=== PATIENT | male | born 1960 | race Caucasian/White ===

== ENCOUNTER 2017-07-11 07:28 | Day surgery (SDC) | payer BC ==
[~2017-07-11 07:28] MED LIST: D5 1/2 NS w/ 20 mEq/L KCl 1,000 ML IV SCH; Lactated Ringers 1,000 ML IV SCH; Lidocaine 2% 5 ML SDV ONE; Propofol 200 MG/20 ML SDV ONE; fentaNYL 100 MCG/2 ML SDV ONE
--- NOTE | 2017-07-11 08:06 | PCM.PREANE ---
Preanesthetic Assessment - Anesthesia/Transfusion/Family Hx Anesthesia History: Prior Anesthesia Without Reaction Other Type of Anesthesia Reaction Comment: Deneis any known porblems in past, no family hx problems Family History of Anesthesia Reaction: No Transfusion History: No Prior Transfusion(s) - Review of Systems General: No Symptoms Pulmonary: No Symptoms Cardiovascular: No Symptoms Gastrointestinal: No Symptoms Neurological: No Symptoms Other: Reports: None - Physical Assessment NPO Status Date: 07/10/17 Height: 1.91 m Weight: 114.759 kg ASA Class: 3 Mental Status: Alert & Oriented x3 Airway Class: Mallampati = 2 Dentition: Reports: Normal Dentition ROM/Head Extension: Full Lungs: Clear to Auscultation, Normal Respiratory Effort Cardiovascular: Regular Rate, Regular Rhythm - Allergies Allergies/Adverse Reactions: Allergies Allergy/AdvReac Type Severity Reaction Status Date / Time Penicillins Allergy Intermediate Hives Verified 10/14/14 17:22 - Anesthesia Plan Pre-Op Medication Ordered: None - Acknowledgements Anesthesia Type Planned: MAC Pt an Appropriate Candidate for the Planned Anesthesia: Yes Alternatives and Risks of Anesthesia Discussed w Pt/Guardian: Yes Pt/Guardian Understands and Agrees with Anesthesia Plan: Yes PreAnesthesia Questionnaire HEENT History: Reports: None Cardiovascular History: Reports: Afib Respiratory History: Reports: None Gastrointestinal History: Reports: None Genitourinary History: Reports: None Neurological History: Reports: Concussion Endocrine/Metabolic History: Reports: Diabetes, Type II, Obesity/BMI 30+ Dermatologic History: Reports: None - Past Surgical History Head Surgeries/Procedures: Reports: None Neurological Surgical History: Reports: Lumbar Spine Other Neurological Surgeries/Procedures: hx back surgery Musculoskeletal Surgical History: Reports: Arthroscopic Knee, Carpal Tunnel - SUBSTANCE USE Smoking Status *Q: Former Smoker Second Hand Smoke Exposure: No Days Per Week of Alcohol Use: 0 Number of Drinks Per Day: 0 Total Drinks Per Week: 0 Recreational Drug Use History: No - HOME MEDS Home Medications: Home Meds Aspirin [Ecotrin] 325 mg PO DAILY 05/11/14 [History] Digoxin 0.25 mg PO DAILY 05/11/14 [History] Diltiazem HCl [Taztia Xt] 360 mg PO DAILY 07/05/17 [History] FLUoxetine HCl [Prozac] 20 mg PO DAILY 07/05/17 [History] Fluticasone Propionate [Flonase Allergy Relief] 2 spray NASBOTH ASDIRECTED PRN 07/05/17 [History] metFORMIN HCl [Metformin HCl] 500 mg PO BID 07/05/17 [History] - CURRENT (IN HOUSE) MEDS Current Meds: Current Medications Potassium Chloride/Dextrose/Sod Cl (D5 1/2 Ns W/ 20 Meq/L Kcl) 1,000 mls @ 125 mls/hr IV ASDIRECTED JARRETT Lactated Ringer's (Ringers, Lactated) 1,000 mls @ 100 mls/hr IV ASDIRECTED JARRETT Last Admin: 07/11/17 07:52 Dose: 100 mls/hr Discontinued Medications Fentanyl (Sublimaze) Confirm Administered Dose 100 mcg .ROUTE .STK-MED ONE Stop: 07/11/17 07:12 Lidocaine (Xylocaine-Mpf 2%) Confirm Administered Dose 5 ml .ROUTE .STK-MED ONE Stop: 07/11/17 07:12 Propofol (Diprivan 20 Ml) Confirm Administered Dose 400 mg .ROUTE .STK-MED ONE Stop: 07/11/17 07:12
[2017-07-11] MEDS ORDERED: Glycopyrrolate 0.2 MG/ML SDV ONE (09:16)
[2017-07-11] MEDS ORDERED: Propofol 200 MG/20 ML SDV ONE (09:18)
--- NOTE | 2017-07-11 09:51 | PCM.OPNOTE ---
- General Post-Op/Procedure Note Date of Surgery/Procedure: 07/11/17 Operative Procedure(s): colonoscopy w snare polypectomy Findings: see dict [id number] Pre Op Diagnosis: gib Post-Op Diagnosis: polyp and diverticulosis Anesthesia Technique: Moderate Sedation Primary Surgeon: Dany Rosado Pathology: 5 mm pedunculated polyp snare polypectomy Complications: None Condition: Good
--- NOTE | 2017-07-11 10:15 | OR ---
SURGEON: Dany Rosado MD DATE OF PROCEDURE: 07/11/2017 PREOPERATIVE DIAGNOSIS: Gastrointestinal bleeding. POSTOPERATIVE DIAGNOSIS: Colon polyp. PROCEDURE PERFORMED: Colonoscopy with snare polypectomy. COMPLICATIONS: None. FINDINGS: 1. The patient is easily sedated with FLIGHT DIRECTOR and Diprivan. The patient is soundly snoring. 2. Bowel prep is left to be desirable. Large amount of semi-formed stool coating the mucosa makes this is a very compromised study, is able to go to the cecum, but requiring constant irrigation to examine the mucosa. Colon was rather redundant at the sigmoid requiring several maneuvers to see the cecum. Cecum can be only seen in distance and indicated by ileocecal fold, one-to-one indentation. Mucosa examined. Upon scope pulling out, the patient has moderate diverticulosis, no signs or symptoms of diverticulitis, at the left colon all the way to the splenic flexure. The patient also had one tiny pedunculated polyp at distant 20 cm when the scope go in with snare polypectomy, captured, and sent for pathology. It is about 4-5 mm in size. The patient would benefit from a repeat colonoscopy in 3 years from today or if clinically indicated otherwise or if the polyp pathology indicate otherwise. DESCRIPTION OF PROCEDURE: The patient was taken to the endoscopy room. A time out was called, patient identified, and procedure identified. Diprivan was then administrated. Patient went from awake to sleep, hearing doctor talking or door closing is normal. Perineum inspection and digital examination were then performed. A well- lubricated colonoscope was gently inserted through the rectum, advanced past the rectosigmoid junction, the descending colon, splenic flexure, transverse colon, hepatic flexure, ascending colon, arrived to the cecum. Cecum was identified as dictated in the finding. Then the scope was carefully withdrawn while attention was paid to the mucosal surface for any abnormality. Air will be sucked out during the scope withdrawal. At the rectum, retroflexed to examine any rectal diseases, fistula or hemorrhoids. During mucosal examination, abnormality or polyp encountered. Using snare equipment, the abnormality or the polyp was then snared off using electrocautery. The Patient tolerated procedure well. There were no intraoperative complications, and Dr. Rosado was present throughout the whole procedure. KIKI / YOVANI /[id number]
[2017-07-11 10:38] VITALS: BP 133/65
== END 2017-07-11 10:13 | disposition home or self-care (01) ==
LOC: MW.SDS 07:28
PROVIDERS: ATTEND Surgery
DX: K63.5 Polyp of colon (principal); K57.30 Diverticulosis of large intestine without perforation or abscess without bleeding; I48.91 Unspecified atrial fibrillation; E11.9 Type 2 diabetes mellitus without complications; E66.9 Obesity, unspecified; Z87.891 Personal history of nicotine dependence; Z88.0 Allergy status to penicillin; Z79.82 Long term (current) use of aspirin; Z79.84 Long term (current) use of oral hypoglycemic drugs; Z79.899 Other long term (current) drug therapy; Z98.890 Other specified postprocedural states; Z68.31 Body mass index [BMI] 31.0-31.9, adult
CPT/HCPCS: 45385; 82962; J3010; J7120; 88305; J2704

== ENCOUNTER 2018-12-05 19:16 | Emergency (ER) | payer BC ==
--- NOTE | 2018-12-05 19:43 | EDM.PDOC ---
ED HPI GENERAL MEDICAL PROBLEM - General Chief Complaint: General Stated Complaint: PT HAS BODY PAIN Time Seen by Provider: 12/05/18 19:43 Source of Information: Reports: Patient History Limitations: Reports: No Limitations - History of Present Illness INITIAL COMMENTS - FREE TEXT/NARRATIVE: HISTORY AND PHYSICAL: History of present illness: Patient is a 58-year-old male who presents to the emergency room with complaints of right lower dental pain, body aches, right ear fullness, headache and generally feeling unwell. Patient states that he did have a dental extraction this afternoon. "Once the numbing medication was gone started have the symptoms". He denies any fever, chills, chest pain, shortness of breath or cough. Denies any abdominal pain, nausea, vomiting, diarrhea, constipation or dysuria. He has not had any recent antibiotic usage. Review of systems: As per history of present illness and below otherwise all systems reviewed and negative. Past medical history: As per history of present illness and as reviewed below otherwise noncontributory. Surgical history: As per history of present illness and as reviewed below otherwise noncontributory. Social history: See social history for further information Family history: As per history of present illness and as reviewed below otherwise noncontributory. Physical exam: General: Well-developed and well-nourished 58-year-old male. Alert and oriented. Nontoxic appearing and in no acute distress. HEENT: Normocephalic, pupils equal and reactive bilaterally, negative for conjunctival pallor or scleral icterus, mucous membranes moist, dental extraction noted to the #28 (blood clot noted in socket), TMs normal bilaterally , throat clear, neck supple, nontender, trachea midline. No drooling or trismus noted. No meningeal signs. No hot potato voice noted. Lungs: Clear to auscultation, breath sounds equal bilaterally, chest nontender. Heart: S1S2, regular rate and rhythm without overt murmur Abdomen: Soft, nondistended, nontender. Negative for masses or hepatosplenomegaly. Negative for costovertebral tenderness. Pelvis: Stable nontender. Genitourinary: Deferred. Rectal: Deferred. Skin: Intact, warm, dry. No lesions or rashes noted. Extremities: Atraumatic, negative for cords or calf pain. Neurovascular unremarkable. Neuro: Awake, alert, oriented. Cranial nerves II through XII unremarkable. Cerebellum unremarkable. Motor and sensory unremarkable throughout. Exam nonfocal. Notes: Negative influenza screening. Due to the patient's recent dental extraction and difficulty to assess if the swelling and redness is due to the procedure or early infection I will treat with clindamycin and have him follow closely with his dentist tomorrow. Diagnostics: Influenza Therapeutics: Dental Balls, Toradol IM Prescription: Clindamycin [place] Impression: Post dental infection Plan: 1. Take the medication as prescribed. 2. [place] for moderate to severe pain. This medication may cause drowsiness so do not take it'll driving her needing to be functioning outside of the house. Otherwise he may use [id number] products for pain relief. 3. Please follow closely with your dentist, call them tomorrow to arrange follow up. Return to the ED as needed and as discussed. Definitive disposition and diagnosis as appropriate pending reevaluation and review of above. Jaw/L Ear Pain Score (Numeric/FACES): 9 - Related Data Allergies Allergy/AdvReac Type Severity Reaction Status Date / Time Penicillins Allergy Intermediate Hives Verified 12/05/18 19:47 Home Meds: Home Meds Aspirin [Ecotrin] 325 mg PO DAILY 05/11/14 [History] Digoxin 0.25 mg PO DAILY 05/11/14 [History] Diltiazem HCl [Taztia Xt] 360 mg PO DAILY 07/05/17 [History] FLUoxetine HCl [Prozac] 20 mg PO DAILY 07/05/17 [History] Fluticasone Propionate [Flonase Allergy Relief] 2 spray NASBOTH ASDIRECTED PRN 07/05/17 [History] metFORMIN HCl [Metformin HCl] 1,000 mg PO BID 07/05/17 [History] Acetaminophen/HYDROcodone [[place] 325-5 MG] 1 dose PO Q4H PRN #15 tablet [Rx] Clindamycin HCl 300 mg PO TID 7 Days #21 capsule 12/05/18 [Rx] Past Medical History HEENT History: Reports: None Cardiovascular History: Reports: Afib Respiratory History: Reports: None Gastrointestinal History: Reports: None Genitourinary History: Reports: None Neurological History: Reports: Concussion Endocrine/Metabolic History: Reports: Diabetes, Type II, Obesity/BMI 30+ Dermatologic History: Reports: None - Past Surgical History Head Surgeries/Procedures: Reports: None Neurological Surgical History: Reports: Lumbar Spine Other Neurological Surgeries/Procedures: hx back surgery Musculoskeletal Surgical History: Reports: Arthroscopic Knee, Carpal Tunnel ED ROS GENERAL - Review of Systems Review Of Systems: ROS reveals no pertinent complaints other than HPI. ED EXAM, GENERAL - Physical Exam Exam: See Below (See dictation) Course - Vital Signs Last Recorded V/S: Last Vital Signs Temp 99.8 F 12/05/18 19:51 Pulse 78 12/05/18 19:51 Resp 16 12/05/18 19:51 BP 197/107 H 12/05/18 19:51 Pulse Ox 97 12/05/18 19:51 - Orders/Labs/Meds Meds: Medications Discontinued Medications Generic Name Dose Route Start Last Admin Trade Name Freq PRN Reason Stop Dose Admin Benzocaine 2 each 12/05/18 19:55 Hurricaine One 20% MUCMEM 12/05/18 19:56 ONETIME ONE Ketorolac Tromethamine 60 mg 12/05/18 19:55 Toradol IM 12/05/18 19:56 ONETIME ONE Lidocaine HCl 15 ml 12/05/18 19:55 Xylocaine 2% Viscous PO 12/05/18 19:56 ONETIME ONE Departure - Departure Time of Disposition: 20:31 Disposition: Home, Self-Care 01 Clinical Impression: Dental infection - Discharge Information Prescriptions: Acetaminophen/HYDROcodone [[place] 325-5 MG] 1 dose PO Q4H PRN #15 tablet PRN Reason: Pain Clindamycin HCl 300 mg PO TID 7 Days #21 capsule Instructions: Dental Extraction, [id number] Referrals: PCP,None [Primary Care Provider] - Forms: ED Department Discharge Additional Instructions: The following information is given to patients seen in the emergency department who are being discharged to home. This information is to outline your options for follow-up care. We provide all patients seen in our emergency department with a follow-up referral. The need for follow-up, as well as the timing and circumstances, are variable depending upon the specifics of your emergency department visit. If you don't have a primary care physician on staff, we will provide you with a referral. We always advise you to contact your personal physician following an emergency department visit to inform them of the circumstance of the visit and for follow-up with them and/or the need for any referrals to a consulting specialist. The emergency department will also refer you to a specialist when appropriate. This referral assures that you have the opportunity for follow-up care with a specialist. All of these measure are taken in an effort to provide you with optimal care, which includes your follow-up. Under all circumstances we always encourage you to contact your private physician who remains a resource for coordinating your care. When calling for follow-up care, please make the office aware that this follow-up is from your recent emergency room visit. If for any reason you are refused follow-up, please contact the [facility] Emergency Department at and asked to speak to the emergency department charge nurse. [facility] [address] [place] [id number] [address] 1. Take the medication as prescribed. 2. [place] for moderate to severe pain. This medication may cause drowsiness so do not take it'll driving her needing to be functioning outside of the house. Otherwise he may use [id number] products for pain relief. 3. Please follow closely with your dentist, call them tomorrow to arrange follow up. Return to the ED as needed and as discussed.
[2018-12-05] MEDS ORDERED: Lidocaine 2% Viscous Solution 15 ML Cup PO ONE (19:55)
[2018-12-05] MEDS ORDERED: Ketorolac 60 MG/2 ML SDV IM ONE (19:55)
[2018-12-05] MEDS ORDERED: Benzocaine 20% Topical Spray UD MUCMEM ONE (19:55)
[2018-12-05 20:54] VITALS: BP 176/105
== END 2018-12-05 20:54 | disposition home or self-care (01) ==
LOC: MW.ED 19:16
DX: K04.7 Periapical abscess without sinus (principal); E11.9 Type 2 diabetes mellitus without complications; E66.9 Obesity, unspecified; Z88.0 Allergy status to penicillin; Z79.82 Long term (current) use of aspirin
CPT/HCPCS: 87804; 93005; 96372; 99283; A9270; J1885

== ENCOUNTER 2019-12-22 10:44 | Emergency (ER) | payer BC ==
[2019-12-22] MEDS ORDERED: Ketorolac 30 MG/ML SDV IVPUSH ONE (10:58)
[2019-12-22] MEDS ORDERED: Sodium Chloride 0.9% 1,000 ML IV ONE (10:58)
[2019-12-22 11:27] LABS: BLOOD UREA NITROGEN,BUN 12 mg/dL (7.0-18.0); CARBON DIOXIDE,CO2 29.7 mmol/L (21.0-32.0); CHLORIDE,CL 101 mmol/L (98-107); GLUCOSE RANDOM 195 mg/dL (74-106); POTASSIUM,K 4.2 mmol/L (3.5-5.1); SODIUM,NA 140 mmol/L (136-148)
[2019-12-22] MEDS ORDERED: Acetaminophen/HYDROcodone 325-5 MG Tab PO ONE (11:47)
--- NOTE | 2019-12-22 12:04 | EDM.PDOC ---
ED HPI GENERAL MEDICAL PROBLEM - General Chief Complaint: General Stated Complaint: RIGHT SHOULDER AND ARM PAIN Time Seen by Provider: 12/22/19 11:59 Source of Information: Reports: Patient - History of Present Illness INITIAL COMMENTS - FREE TEXT/NARRATIVE: HISTORY AND PHYSICAL: History of present illness: [Patient presents with for right shoulder pain no specific negative surgery injury no trauma per patient no fever nausea vomiting chills sweats no chest pain shortness of breath headache dizziness palpitation no bowel or urine symptoms, patient is known to sleep on his right shoulder but is not certain if he did sleep on her shoulder not last night he has pain at current however he rates 8 out of 10 it is worsened by movement of the shoulder I can reproduce symptoms with a right trapezius distribution as well as palpation along tricep muscle and forearm He does have a palm sized patch of redness over his scapula but almost has more appearance of a lesion on his dermis rather than cellulitis there is red and warm however the lesion itself is not tender there is no fluctuance no drainage for abscess, the patient was unaware of whether it is a intermediate project manager lesion or something that has been developing we will have him follow-up with primary care concerning this for consideration of biopsy ] Review of systems: As per history of present illness and below otherwise all systems reviewed and negative. Past medical history: As per history of present illness and as reviewed below otherwise noncontributory. Surgical history: As per history of present illness and as reviewed below otherwise noncontributory. Social history: No reported history of drug or alcohol abuse. Family history: As per history of present illness and as reviewed below otherwise noncontributory. Physical exam: HEENT: Atraumatic, normocephalic, pupils reactive, negative for conjunctival pallor or scleral icterus, mucous membranes moist, throat clear, neck supple, nontender, trachea midline. Lungs: Clear to auscultation, breath sounds equal bilaterally, chest nontender. Heart: S1S2, regular, negative for clicks, rubs, or JVD. Abdomen: Soft, nondistended, nontender. Negative for masses or hepatosplenomegaly. Negative for costovertebral tenderness. Pelvis: Stable nontender. Genitourinary: Deferred. Rectal: Deferred. Extremities: Atraumatic, negative for cords or calf pain. Neurovascular unremarkable. Neuro: Awake, alert, oriented. Cranial nerves II through XII unremarkable. Cerebellum unremarkable. Motor and sensory unremarkable throughout. Exam nonfocal. Low skeletal is per HPI otherwise unremarkable Skin as per HPI otherwise unremarkable Diagnostics: [CMP UA troponin EKG Chest 1 view ] Therapeutics: toradol [Brinkley ] Impression: [Right shoulder pain] Definitive disposition and diagnosis as appropriate pending reevaluation and review of above. R Shoulder Pain Score (Numeric/FACES): 9 - Related Data Allergies Allergy/AdvReac Type Severity Reaction Status Date / Time Penicillins Allergy Intermediate Hives Verified 12/22/19 10:52 Sulfa (Sulfonamide Allergy Rash Verified 12/22/19 10:52 Antibiotics) Home Meds: Home Meds Aspirin [Ecotrin EC] 325 mg PO DAILY 05/11/14 [History] Digoxin 0.25 mg PO DAILY 05/11/14 [History] Diltiazem HCl [Taztia Xt] 360 mg PO DAILY 07/05/17 [History] FLUoxetine HCl [Prozac] 20 mg PO DAILY 07/05/17 [History] Fluticasone Propionate [Flonase Allergy Relief] 2 spray NASBOTH ASDIRECTED PRN 07/05/17 [History] metFORMIN HCl [Metformin HCl] 1,000 mg PO BID 07/05/17 [History] Acetaminophen/HYDROcodone [Brinkley 325-5 MG] 1 dose PO Q4H PRN #15 tablet [Rx] Clindamycin HCl 300 mg PO TID 7 Days #21 capsule 12/05/18 [Rx] Past Medical History HEENT History: Reports: None Cardiovascular History: Reports: Afib Other Cardiovascular History: "faulty valve" Respiratory History: Reports: None Gastrointestinal History: Reports: None Genitourinary History: Reports: None Neurological History: Reports: Concussion Endocrine/Metabolic History: Reports: Diabetes, Type II, Obesity/BMI 30+ Dermatologic History: Reports: None - Infectious Disease History Infectious Disease History: Reports: Chicken Pox - Past Surgical History Head Surgeries/Procedures: Reports: None Neurological Surgical History: Reports: Lumbar Spine Other Neurological Surgeries/Procedures: hx back surgery Musculoskeletal Surgical History: Reports: Arthroscopic Knee, Carpal Tunnel ED ROS GENERAL - Review of Systems Review Of Systems: See Below ED EXAM, GENERAL - Physical Exam Exam: See Below Course - Vital Signs Last Recorded V/S: Last Vital Signs Temp 97.5 F 12/22/19 10:53 Pulse 72 12/22/19 10:53 Resp 16 12/22/19 10:53 BP 135/83 12/22/19 10:53 Pulse Ox 97 12/22/19 10:53 - Orders/Labs/Meds Orders: Active Orders 24 hr Category Date Time Status EKG Documentation Completion [RC] STAT Care 12/22/19 10:58 Active Chest 1V Frontal [CR] Stat Exams 12/22/19 10:59 Taken UA RFX PAMELLA AND CULT IF INDIC [URIN] Stat Lab 12/22/19 10:58 Ordered Labs: Laboratory Tests 12/22/19 12/22/19 12/22/19 Range/Units 10:50 10:50 10:50 WBC 11.05 H (4.0-11.0) K/uL RBC 5.18 (4.50-5.90) M/uL Hgb 15.8 (13.0-17.0) g/dL Hct 44.9 (38.0-50.0) % MCV 86.7 (80.0-98.0) fL MCH 30.5 (27.0-32.0) pg MCHC 35.2 (31.0-37.0) g/dL RDW Std Deviation 40.3 (28.0-62.0) fl RDW Coeff of Tres 13 (11.0-15.0) % Plt Count 326 (150-400) K/uL MPV 9.20 (7.40-12.00) fL Neut % (Auto) 76.1 (48.0-80.0) % Lymph % (Auto) 15.4 L (16.0-40.0) % [place] % (Auto) 7.1 (0.0-15.0) % Eos % (Auto) 1.3 (0.0-7.0) % Baso % (Auto) 0.1 (0.0-1.5) % Neut # (Auto) 8.4 H (1.4-5.7) K/uL Lymph # (Auto) 1.7 (0.6-2.4) K/uL [place] # (Auto) 0.8 (0.0-0.8) K/uL Eos # (Auto) 0.1 (0.0-0.7) K/uL Baso # (Auto) 0.0 (0.0-0.1) K/uL Nucleated RBC % 0.0 /100WBC Nucleated RBCs # 0 K/uL INR 0.96 Sodium 140 (136-148) mmol/L Potassium 4.2 (3.5-5.1) mmol/L Chloride 101 (98-107) mmol/L Carbon Dioxide 29.7 (21.0-32.0) mmol/L BUN 12 (7.0-18.0) mg/dL Creatinine 1.0 (0.8-1.3) mg/dL Est Cr Clr Drug Dosing 96.24 mL/min Estimated GFR (MDRD) > 60.0 ml/min Glucose 195 H (74-106) mg/dL Calcium 9.4 (8.5-10.1) mg/dL Total Bilirubin 0.6 (0.2-1.0) mg/dL AST 25 (15-37) IU/L ALT 60 (14-63) IU/L Alkaline Phosphatase 105 (46-116) U/L Troponin I < 0.050 (0.000-0.056) ng/mL Total Protein 7.5 (6.4-8.2) g/dL Albumin 4.1 (3.4-5.0) g/dL Globulin 3.4 (2.6-4.0) g/dL Albumin/Globulin Ratio 1.2 (0.9-1.6) Meds: Medications Discontinued Medications Generic Name Dose Route Start Last Admin Trade Name Freq PRN Reason Stop Dose Admin Hydrocodone Bitart/Acetaminophen 1 tab 12/22/19 11:47 Brinkley 325-5 Mg PO 12/22/19 11:48 ONETIME ONE Sodium Chloride 1,000 mls @ 999 mls/hr 12/22/19 10:58 12/22/19 11:08 Normal Saline IV 12/22/19 11:58 999 mls/hr STAT ONE Administration Ketorolac Tromethamine 30 mg 12/22/19 10:58 12/22/19 11:08 Toradol IVPUSH 12/22/19 10:59 30 mg ONETIME ONE Administration Departure - Departure Time of Disposition: 12:03 Disposition: Home, Self-Care 01 Condition: Good Clinical Impression: Right shoulder pain, Muscle spasm - Discharge Information Referrals: Say Newsome MD [Primary Care Provider] - Additional Instructions: The following information is given to patients seen in the emergency department who are being discharged to home. This information is to outline your options for follow-up care. We provide all patients seen in our emergency department with a follow-up referral. The need for follow-up, as well as the timing and circumstances, are variable depending upon the specifics of your emergency department visit. If you don't have a primary care physician on staff, we will provide you with a referral. We always advise you to contact your personal physician following an emergency department visit to inform them of the circumstance of the visit and for follow-up with them and/or the need for any referrals to a consulting specialist. The emergency department will also refer you to a specialist when appropriate. This referral assures that you have the opportunity for follow-up care with a specialist. All of these measure are taken in an effort to provide you with optimal care, which includes your follow-up. Under all circumstances we always encourage you to contact your private physician who remains a resource for coordinating your care. When calling for follow-up care, please make the office aware that this follow-up is from your recent emergency room visit. If for any reason you are refused follow-up, please contact the [facility] emergency department at and asked to speak to the emergency department charge nurse. Sepsis Event Note - Evaluation Sepsis Screening Result: No Definite Risk - Focused Exam Vital Signs: Vital Signs Temp Pulse Resp BP Pulse Ox 12/22/19 10:53 97.5 F 72 16 135/83 97 Date Exam was Performed: 12/22/19 Time Exam was Performed: 11:59 - My Orders Last 24 Hours: My Active Orders 12/22/19 10:58 EKG Documentation Completion [RC] STAT UA RFX PAMELLA AND CULT IF INDIC [URIN] Stat 12/22/19 10:59 Chest 1V Frontal [CR] Stat - Assessment/Plan Last 24 Hours: My Active Orders 12/22/19 10:58 EKG Documentation Completion [RC] STAT UA RFX PAMELLA AND CULT IF INDIC [URIN] Stat 12/22/19 10:59 Chest 1V Frontal [CR] Stat
[2019-12-22 12:10] VITALS: BP 132/78; PULSE 65
--- NOTE | 2019-12-22 12:19 | CR ---
Chest: Portable view of the chest was obtained. Comparison: Prior chest x-ray of 10/20/14. Nodules are identified within both mid lungs. These appear to be present on prior exam and are therefore felt to be benign. Minimal scarring is seen within the left base. Lungs otherwise are clear with no acute parenchymal process. Bony structures are unremarkable. Impression: 1. Findings as noted above believed to be stable from prior chest x-ray. 2. Nothing acute is otherwise seen on portable chest x-ray. Diagnostic code #2 This report was dictated in [place] Standard Time
== END 2019-12-22 12:18 | disposition home or self-care (01) ==
LOC: MW.ED 10:44
DX: M62.838 Other muscle spasm (principal); M25.511 Pain in right shoulder; Z88.0 Allergy status to penicillin; Z88.2 Allergy status to sulfonamides; I48.91 Unspecified atrial fibrillation; E11.9 Type 2 diabetes mellitus without complications; E66.9 Obesity, unspecified; Z68.28 Body mass index [BMI] 28.0-28.9, adult; Z79.84 Long term (current) use of oral hypoglycemic drugs; Z79.899 Other long term (current) drug therapy
CPT/HCPCS: 36415; 71045; 80053; 84484; 85025; 85610; 93005; 96361; 96374; 99284; A9270; J1885; J7030